=== PATIENT | female | born 1965 | race American Indian/Alaskan Native ===

== ENCOUNTER 2017-12-20 08:59 | Outpatient (CLI) | payer BC ==
--- NOTE | 2017-12-20 16:19 | Mammography Report ---
BILATERAL DIGITAL SCREENING MAMMOGRAM with CAD: 12/20/17 08:59:00 CLINICAL: Routine screening. COMPARISON:None available. FINDINGS: The breasts are almost entirely fatty. No mass, architectural distortion or suspicious calcifications. IMPRESSION: No mammographic evidence of malignancy. BI-RADS CATEGORY: 1 - - Negative RECOMMENDATION: Routine mammographic screening in one year. COMMENT: Patient follow-up letters are generated by our [employer] application.
== END 2017-12-20 09:00 | disposition home or self-care (01) ==
LOC: MAMMO 08:59
PROVIDERS: ATTEND Physical Medicine & Rehabilitation
DX: Z12.31 Encounter for screening mammogram for malignant neoplasm of breast (principal)
CPT/HCPCS: 77067

== ENCOUNTER 2019-08-05 11:27 | Emergency (ER) | payer BC ==
[2019-08-05 11:52] VITALS: BP 138/86
--- NOTE | 2019-08-05 11:55 | Event Note ---
ED Screening Note Date of service: 08/05/19 Time: 11:54 ED Screening Note: 54 y o female presents with left index finger pain while trying to catch an object last night finger bent backwards This initial assessment/diagnostic orders/clinical plan/treatment(s) is/are subject to change based on patients health status, clinical progression and re- assessment by fellow clinical providers in the ED. Further treatment and workup at subsequent clinical providers discretion. Patient/guardian urged not to elope from the ED as their condition may be serious if not clinically assessed and managed. Initial orders include: xr hand acceval
--- NOTE | 2019-08-05 12:33 | XRay Report ---
Left hand, 3 views INDICATION: hyperextened left pointer finger trying to catch. COMPARISON: None. IMPRESSION: Normal bone mineralization. No acute osseous findings or joint pathology is identified. There is moderate soft tissue swelling at the level of the metacarpophalangeal joints. Signer Name: Bruno Poretr Jr, MD Signed: 08/05/2019 12:28 PM Workstation Name: [id number]
--- NOTE | 2019-08-05 12:44 | Emergency Department Report ---
ED Upper Extremity Inj HPI - General Chief Complaint: Extremity Injury, Upper Stated Complaint: L FINGER INJURY Time Seen by Provider: 08/05/19 11:54 Source: patient Mode of arrival: Ambulatory Limitations: No Limitations - History of Present Illness Initial Comments: Patient reports she injured her left index finger while attempting to catch a bag with heavy items in it yesterday. Complaint: Injury to:: left, finger Onset/Timin -: hour(s) Other Extremity Injury: Fingers: Left (index) Other Injuries: none Handedness: right Place: home Severity scale (0 -10): 9 Improves With: rest, other (a previous prescription of Celebrex) Worsens With: movement of extremity Context: direct blow Associated Symptoms: other (pain with swelling). denies: weakness, numbness, neck pain, suspects foreign body, nausea/vomiting, heard/felt popping sensat Treatments Prior to Arrival: NSAIDS - Related Data Previous Rx's Medication Instructions Recorded Last Taken Type Benzonatate [Tessalon Perle] 100 mg PO TID PRN #14 capsule 09/25/13 Unknown Rx HYDROcodone/APAP 5-325 [[place] 1 each PO Q8HR PRN #10 tablet 09/25/13 Unknown Rx 5/325 mg] Ibuprofen [Motrin] 600 mg PO Q6H PRN #20 tablet 09/25/13 Unknown Rx Diphenhydramine HCl [Benadryl 50 mg PO Q6HR PRN #30 tablet 11/29/15 Unknown Rx Allergy TAB] dexAMETHasone [Decadron] 4 mg PO ONCE #10 tablet 11/29/15 Unknown Rx Allergies Allergy/AdvReac Type Severity Reaction Status Date / Time orange juice Allergy Itching Verified 08/05/19 11:30 steroids Allergy Hives Uncoded 08/05/19 11:30 ED Review of Systems ROS: Stated complaint: L FINGER INJURY Other details as noted in HPI Constitutional: denies: chills, fever Eyes: denies: eye pain, eye discharge, vision change ENT: denies: ear pain, throat pain Respiratory: denies: cough, shortness of breath, wheezing Cardiovascular: denies: chest pain, palpitations Endocrine: no symptoms reported Gastrointestinal: denies: abdominal pain, nausea, diarrhea Genitourinary: denies: urgency, dysuria, discharge Musculoskeletal: joint swelling (left index finger). denies: back pain, arthralgia Skin: denies: rash, lesions Neurological: denies: headache, weakness, paresthesias Psychiatric: denies: anxiety, depression Hematological/Lymphatic: denies: easy bleeding, easy bruising ED Past Medical Hx - Past Medical History Previous Medical History?: Yes Additional medical history: heart murmur, anemia, psorasis - Surgical History Past Surgical History?: Yes Additional Surgical History: tubal/ 81. left 5th finger surgery. left knee- meniscus repair - Social History Smoking Status: Never Smoker Substance Use Type: Alcohol - Medications Home Medications: Home Medications Medication Instructions Recorded Confirmed Last Taken Type Benzonatate [Tessalon Perle] 100 mg PO TID PRN #14 capsule 09/25/13 Unknown Rx HYDROcodone/APAP 5-325 [[place] 1 each PO Q8HR PRN #10 tablet 09/25/13 Unknown Rx 5/325 mg] Ibuprofen [Motrin] 600 mg PO Q6H PRN #20 tablet 09/25/13 Unknown Rx Diphenhydramine HCl [Benadryl 50 mg PO Q6HR PRN #30 tablet 11/29/15 Unknown Rx Allergy TAB] dexAMETHasone [Decadron] 4 mg PO ONCE #10 tablet 11/29/15 Unknown Rx ED Physical Exam - General Limitations: No Limitations General appearance: alert, in no apparent distress - Respiratory Respiratory exam: Present: normal lung sounds bilaterally. Absent: respiratory distress, wheezes, rales, rhonchi, stridor, chest wall tenderness, accessory muscle use, decreased breath sounds, prolonged expiratory - Cardiovascular Cardiovascular Exam: Present: regular rate, normal rhythm, normal heart sounds. Absent: bradycardia, tachycardia, irregular rhythm, systolic murmur, diastolic murmur, rubs, gallop - Expanded Upper Extremity Exam Left Shoulder Exam: Present: normal inspection, full ROM Upper Arm exam: Present: normal inspection, full ROM Elbow exam: Present: normal inspection, full ROM Forearm Wrist exam: Present: normal inspection, full ROM Hand Wrist exam: Present: full ROM, tenderness (left MCP index phalanx), swelling (left MCP index phalanx). Absent: abrasion, laceration, ecchymosis, deformity, crepidus, dislocation, erythema, amputation, nail avulsion, subungual hematoma Neuro motor exam: Present: wrist extension intact, thumb opposition intact, thumb IP flexion intact, thumb adduction intact, fingers 2-5 abduction intact Neurosensory exam: Present: 2-point discrimination, radial nerve intact, ulnar nerve intact, median nerve intact Vascular: Present: normal capillary refill, radial pulse (2+), brachial pulse (2+), ulnar pulse (2+). Absent: vascular compromise, Pallo, pulse deficit radial art, pulse deficit ulnar art, pulse deficit brachial art - Neurological Exam Neurological exam: Present: alert, oriented X3, CN II-XII intact, normal gait, reflexes normal. Absent: motor sensory deficit - Psychiatric Psychiatric exam: Present: normal affect, normal mood - Skin Skin exam: Present: warm, dry, intact, normal color. Absent: rash ED Course Vital Signs 08/05/19 11:50 Temperature 97.8 F Pulse Rate 88 Respiratory 18 Rate Blood Pressure 138/86 O2 Sat by Pulse 96 Oximetry ED Medical Decision Making - Lab Data Vital Signs 08/05/19 11:50 Temperature 97.8 F Pulse Rate 88 Respiratory 18 Rate Blood Pressure 138/86 O2 Sat by Pulse 96 Oximetry - Radiology Data Radiology results: image reviewed Left hand, 3 views INDICATION: hyperextened left pointer finger trying to catch. COMPARISON: None. IMPRESSION: Normal bone mineralization. No acute osseous findings or joint pathology is identified. There is moderate soft tissue swelling at the level of the metacarpophalangeal joints. - Medical Decision Making During the course of ED, all other systems were unremarkable except for documentation in HPI. Radiology studies revealed normal bone mineralizations. No acute osseous findings or joint pathology is identified. There is moderate soft tissue swelling at the level of the metacarpophalangeal joints. Patient was giv en a splint for comfort, instructed to continue taking OTC Ibuprofen for pain, follow up with selective referral for persistent pain, she verbalized understanding - Differential Diagnosis Left Index Finger Pain, Left Index Finger Fracture Critical care attestation.: If time is entered above; I have spent that time in minutes in the direct care of this critically ill patient, excluding procedure time. ED Disposition Clinical Impression: Strain of left index finger Disposition: -01 TO HOME OR SELFCARE Is pt being admited?: No Does the pt Need Aspirin: No Condition: Stable Instructions: Finger Sprain (ED) Additional Instructions: Use the wrist splint for comfort. Follow up with the selective referral given at discharge for persistent pain. Return back to the ED for worsening symptoms Referrals: TATI SIERRA MD [Staff Physician] - 3-5 Days Forms: Work/School Release Form(ED) Time of Disposition: 12:57
== END 2019-08-05 13:14 | disposition home or self-care (01) ==
LOC: ED 11:27
DX: S56.112A Strain of flexor muscle, fascia and tendon of left index finger at forearm level, initial encounter (principal); Z98.51 Tubal ligation status; Z91.018 Allergy to other foods; Z88.8 Allergy status to other drugs, medicaments and biological substances; X58.XXXA Exposure to other specified factors, initial encounter; Y93.89 Activity, other specified; Y92.009 Unspecified place in unspecified non-institutional (private) residence as the place of occurrence of the external cause; Y99.8 Other external cause status

== ENCOUNTER 2020-01-26 02:43 | Emergency (ER) | payer BC ==
[2020-01-26] MEDS ORDERED: IBUPROFEN 600 MG TAB PO ONE ×2 (04:18)
[2020-01-26] MEDS ORDERED: dexAMETHasone 20 MG/5 ML VIAL IM ONE (05:15)
[2020-01-26] MEDS ORDERED: CYCLOBENZAPRINE 10 MG TAB PO ONE (05:15)
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
[2020-01-26 06:26] VITALS: BP 153/98
== END 2020-01-26 05:09 | disposition home or self-care (01) ==
LOC: ED 02:43
DX: S29.012A Strain of muscle and tendon of back wall of thorax, initial encounter (principal); M19.90 Unspecified osteoarthritis, unspecified site; Z88.8 Allergy status to other drugs, medicaments and biological substances; Z91.018 Allergy to other foods; X58.XXXA Exposure to other specified factors, initial encounter; Y93.89 Activity, other specified; Y92.89 Other specified places as the place of occurrence of the external cause; Y99.8 Other external cause status
CPT/HCPCS: 96372; 99282; J1100

== ENCOUNTER 2021-08-01 15:07 | Emergency (ER) | payer BC ==
[2021-08-01 15:21] VITALS: BP 170/106
[2021-08-01] MEDS ORDERED: KETOROLAC 10 MG TAB PO ONE (16:48)
[2021-08-01] MEDS ORDERED: CYCLOBENZAPRINE 10 MG TAB PO ONE (16:48)
[2021-08-01 17:20] LABS: Basophils % (Auto) 0.6 % (0.0-1.8); Eosinophils # (Auto) 0.2 K/mm3 (0.0-0.4); Hematocrit 39.6 % (30.3-42.9); Hemoglobin 12.9 gm/dl (10.1-14.3); Lymphocytes # (Auto) 1.5 K/mm3 (1.2-5.4); Lymphocytes % (Auto) 39.4 % (13.4-35.0); Mean Corpuscular HGB Conc 33 % (30-34); Mean Corpuscular Volume 88 fl (79-97); Monocytes # (Auto) 0.3 K/mm3 (0.0-0.8); Monocytes % (Auto) 8.2 % (0.0-7.3); Platelet Count 254 K/mm3 (140-440); Red Blood Count 4.49 M/mm3 (3.65-5.03); Red Cell Distribution Width 13.5 % (13.2-15.2)
[2021-08-01 17:26] LABS: BUN/Creatinine Ratio 11; Blood Urea Nitrogen 9 mg/dL (7-17); Calcium 9.4 mg/dL (8.4-10.2); Hemolysis Index 6
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
== END 2021-08-01 18:47 | disposition home or self-care (01) ==
LOC: ED 15:07
DX: M62.838 Other muscle spasm (principal); M19.90 Unspecified osteoarthritis, unspecified site; F41.8 Other specified anxiety disorders; R01.1 Cardiac murmur, unspecified; D64.9 Anemia, unspecified; M54.5 Low back pain; Z98.890 Other specified postprocedural states; L40.9 Psoriasis, unspecified; Z88.8 Allergy status to other drugs, medicaments and biological substances; Z91.018 Allergy to other foods
CPT/HCPCS: 36415; 80048; 85025; 99283

== ENCOUNTER 2021-08-18 18:27 | Emergency (ER) | payer BC ==
[2021-08-18 18:34] VITALS: BP 141/101
[2021-08-18] MEDS ORDERED: FAMOTIDINE 20 MG TAB PO ONE (18:42)
[2021-08-18] MEDS ORDERED: hydrOXYzine HCL 25 MG TAB PO ONE (18:42)
[2021-08-18] MEDS ORDERED: predniSONE 20 MG TAB PO ONE (18:42)
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
== END 2021-08-18 19:41 | disposition home or self-care (01) ==
LOC: ED 18:27
DX: L50.9 Urticaria, unspecified (principal); M13.80 Other specified arthritis, unspecified site; Z88.8 Allergy status to other drugs, medicaments and biological substances; Z91.018 Allergy to other foods
CPT/HCPCS: 99282; J7512

== ENCOUNTER 2021-08-23 11:32 | Emergency (ER) | payer BC ==
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
[2021-08-23 12:20] VITALS: BP 153/97
== END 2021-08-23 12:21 | disposition home or self-care (01) ==
LOC: ED 11:32
DX: L03.113 Cellulitis of right upper limb (principal); M19.90 Unspecified osteoarthritis, unspecified site; F41.9 Anxiety disorder, unspecified; R01.1 Cardiac murmur, unspecified; D64.9 Anemia, unspecified; G89.29 Other chronic pain; M54.9 Dorsalgia, unspecified; Z98.890 Other specified postprocedural states; Z88.8 Allergy status to other drugs, medicaments and biological substances; Z91.018 Allergy to other foods
CPT/HCPCS: 99282

== ENCOUNTER 2021-09-21 13:44 | Emergency (ER) | payer BC ==
[2021-09-21 15:37] VITALS: BP 148/103
[2021-09-21] MEDS ORDERED: dexAMETHasone 20 MG/5 ML VIAL IM ONE (15:56)
[2021-09-21] MEDS ORDERED: FAMOTIDINE 20 MG TAB PO ONE (15:56)
[2021-09-21] MEDS ORDERED: diphenhydrAMINE 25 MG CAP PO ONE (15:56)
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
== END 2021-09-21 16:43 | disposition home or self-care (01) ==
LOC: ED 13:44
DX: L29.9 Pruritus, unspecified (principal); T50.Z95A Adverse effect of other vaccines and biological substances, initial encounter; M19.90 Unspecified osteoarthritis, unspecified site; F41.9 Anxiety disorder, unspecified; G89.29 Other chronic pain; Z91.018 Allergy to other foods; Z79.899 Other long term (current) drug therapy; Y92.89 Other specified places as the place of occurrence of the external cause
CPT/HCPCS: 96372; 99282; J1100

== ENCOUNTER 2022-04-06 07:28 | Emergency (ER) | payer BC ==
[2022-04-06 09:24] VITALS: BP 154/99
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
== END 2022-04-06 12:07 | disposition home or self-care (01) ==
LOC: ED 07:28
DX: R10.9 Unspecified abdominal pain (principal); J06.9 Acute upper respiratory infection, unspecified; J01.90 Acute sinusitis, unspecified
CPT/HCPCS: 99282

== ENCOUNTER 2022-06-08 22:32 | Emergency (ER) | payer BC ==
[2022-06-08 22:51] VITALS: BP 175/101
[2022-06-09] MEDS ORDERED: dexAMETHasone 20 MG/5 ML VIAL IM ONE (00:15)
[2022-06-09] MEDS ORDERED: CYCLOBENZAPRINE 10 MG TAB PO ONE (00:15)
[2022-06-09] MEDS ORDERED: KETOROLAC 30 MG/1 ML INJ IM ONE (00:15)
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
== END 2022-06-09 01:33 | disposition home or self-care (01) ==
LOC: ED 22:32
DX: M54.50 Low back pain, unspecified (principal); M19.90 Unspecified osteoarthritis, unspecified site; F41.9 Anxiety disorder, unspecified; Z91.02 Food additives allergy status; Z79.899 Other long term (current) drug therapy
CPT/HCPCS: 96372; 99282; J1100; J1885